=== PATIENT | male | born 1965 | race Hispanic/Latino ===

== ENCOUNTER 2018-09-12 15:49 | Emergency (ER) | payer OTHER, SELFPAY ==
[2018-09-12] MEDS ORDERED: Lidocaine 1% 20 ML MDV ONE (16:16)
[2018-09-12] MEDS ORDERED: Ibuprofen 800 MG TAB ONE (16:16)
[2018-09-12] MEDS ORDERED: HYDROcodone/Acetaminophen 10/325 mg Tablet ONE (16:16)
[2018-09-12] MEDS ORDERED: Cephalexin 500 MG CAP ONE (16:16)
[2018-09-12] MEDS ORDERED: Adacel (T-DAP) 0.5 ML VIAL ONE (16:16)
[2018-09-12] MEDS ORDERED: Clindamycin 150 MG CAP ONE (16:19)
[2018-09-12] MEDS ORDERED: Bacitracin Zinc 1 Packet ONE (16:31)
== END 2018-09-12 17:10 | disposition short-term general hospital (02) ==
LOC: MADERS 15:49
DX: S61.012A Laceration without foreign body of left thumb without damage to nail, initial encounter (principal); S61.211A Laceration without foreign body of left index finger without damage to nail, initial encounter; S61.213A Laceration without foreign body of left middle finger without damage to nail, initial encounter; S61.217A Laceration without foreign body of left little finger without damage to nail, initial encounter; S61.215A Laceration without foreign body of left ring finger without damage to nail, initial encounter; I10 Essential (primary) hypertension; F17.210 Nicotine dependence, cigarettes, uncomplicated; W29.8XXA Contact with other powered hand tools and household machinery, initial encounter
CPT/HCPCS: 64450; 90471; 90715; J2001

== ENCOUNTER 2023-11-12 11:54 | Emergency (ER) | payer SELFPAY | END 2023-11-12 12:54 | disposition home or self-care (01) | LOC: MADERS 11:54 | DX: S83.91XA Sprain of unspecified site of right knee, initial encounter (principal); I10 Essential (primary) hypertension; F17.210 Nicotine dependence, cigarettes, uncomplicated; W22.8XXA Striking against or struck by other objects, initial encounter ==